=== PATIENT | female | born 1950 | race Caucasian/White ===

== ENCOUNTER 2019-11-03 10:59 | Emergency (ER) | payer OTHER ==
[~2019-11-03] VITALS: Ht 162.6 cm; Wt 65.9 kg
[~2019-11-03 10:59] MED LIST: ASPIRIN E.C. 8181 MG PO; NAPROSYN500 MG PO; PRINIVIL10 MG PO; VITAMIN D32000 I1 PO; VYTORIN 10 MG-21 TAB PO
[2019-11-03 11:04] VITALS: BP 129/82; TEMP 97.4
[2019-11-03 11:17] LABS: COLLECTION METHOD CLEAN CATCH
[2019-11-03 11:46] LABS: MUCOUS Present /lpf; PH 5 (5-8); SQUAMOUS EPITHELIAL 0-2 /hpf; URINE APPEARANCE Clear; URINE BACTERIA Rare /hpf; URINE BILIRUBIN Negative (NEGATIVE); URINE BLOOD Negative (NEGATIVE); URINE COLOR Yellow; URINE GLUCOSE Negative (NEGATIVE); URINE KETONE Negative (NEGATIVE); URINE LEUKOCYTE ESTERASE Negative (NEGATIVE); URINE NITRATE Negative (NEGATIVE); URINE PROTEIN(semi-quant) Negative (NEGATIVE); URINE RBC 0-2 /hpf; URINE UROBILINOGEN Negative (NEGATIVE)
[2019-11-03 12:26] LABS: BASO # 0.2 (0.0-0.2); BASO % 1.2 % (0.0-2.0); EOS # 0.2 (0.0-0.7); EOS % 1.8 % (0-4.0); GRAN # 9.6 (1.4-6.5); GRAN % 73.1 % (42.2-75.2); HEMATOCRIT 43.2 % (37.0-47.0); HEMOGLOBIN 14.6 g/dl (12.5-16.0); LYMPH # 2.2 (1.2-3.4); MEAN CELL VOLUME 92 fl (80.0-100.0); MEAN CORPUSCULAR HEMOGLOBIN 31 pg (27.0-31.0); MEAN CORPUSCULAR HGB CONC 34 g/dl (33.0-37.0); MEAN PLATELET VOLUME 12.1 fl (7.4-10.4); MONO # 0.8 (0.1-0.6); MONO % 6.4 % (1.7-9.3); PLATELET COUNT 175 K/mm3 (130-400); RED BLOOD COUNT 4.72 M/mm3 (4.10-5.30); REDCELL DISTRIBUTION WIDTH-CV 12.9 % (11.5-14.5)
[2019-11-03 12:48] LABS: ALANINE AMINOTRANSFERASE 20 U/L (4-34); ALBUMIN 4.6 gm/dL (3.5-5.0); ALKALINE PHOSPHATASE 63 U/L (50-136); ANION GAP 7 mmol/L (7-16); AST,SGOT 50 U/L (15-37); BILIRUBIN,TOTAL 1.4 mg/dL (0.0-1.0); BLOOD UREA NITROGEN 16 mg/dL (7-17); CALCIUM 9.9 mg/dL (8.4-10.2); CARBON DIOXIDE 23 mmol/L (22-30); CHLORIDE 107 mmol/L (98-107); CREATININE, serum 0.96 (0.52-1.25); GLUCOSE 134 mg/dL (74-106); POTASSIUM 5.2 mmol/L (3.4-5.0); SODIUM 137 mmol/L (137-145); TOTAL PROTEIN 8.3 gm/dL (6.4-8.2)
[2019-11-03 13:22] LABS: C-REACTIVE PROTEIN < 0.5 mg/dL (0.0-0.9)
[2019-11-03 15:07] VITALS: PULSE 82
== END 2019-11-03 15:05 | disposition home or self-care (01) ==
LOC: COL.ER 10:59
PROVIDERS: Emergency Medicine; Nurse Practitioner
DX: N20.1 Calculus of ureter (principal); Z79.82 Long term (current) use of aspirin
CPT/HCPCS: Q9967

== ENCOUNTER → 2020-03-10 | Outpatient (CLI) | payer MEDICARE | LOC: MC.RAD 16:26 | DX: Z12.31 Encounter for screening mammogram for malignant neoplasm of breast (principal) ==

== ENCOUNTER → 2021-05-05 | Outpatient (CLI) | payer MEDICARE, OTHER | LOC: MC.RAD 10:13 | DX: Z12.31 Encounter for screening mammogram for malignant neoplasm of breast (principal) ==

== ENCOUNTER → 2023-03-23 | Outpatient (CLI) | payer MEDICARE, OTHER | LOC: COL.RAD 09:38 | DX: Z12.2 Encounter for screening for malignant neoplasm of respiratory organs (principal); Z87.891 Personal history of nicotine dependence ==